=== PATIENT | male | born 1960 | race African-American/Black ===

== ENCOUNTER 2017-04-11 11:58 | Emergency (ER) | payer MEDICAID, OTHER ==
[~2017-04-11] VITALS: Ht 182.9 cm; Wt 104.3 kg
[2017-04-11] MEDS ORDERED: HYDROCODONE/ACETAMINOPHEN 5/325MG TABLET PO ONE (13:00)
[2017-04-11] MEDS ORDERED: BACITRACIN ZINC OINT UDPKT TOP ONE (13:00)
[2017-04-11 13:25] VITALS: BP 161/88
[2017-04-11] MEDS ORDERED: LIDOCAINE HCL 1% 20ML VIAL (Pyxis) INJ MC ONE (14:15)
== END 2017-04-11 16:39 | disposition home or self-care (01) ==
LOC: ER 12:07
DX: S91.112A Laceration without foreign body of left great toe without damage to nail, initial encounter (principal); W25.XXXA Contact with sharp glass, initial encounter; Y93.89 Activity, other specified; Y92.018 Other place in single-family (private) house as the place of occurrence of the external cause; M20.5X2 Other deformities of toe(s) (acquired), left foot; R20.0 Anesthesia of skin; M79.621 Pain in right upper arm; M79.5 Residual foreign body in soft tissue; Z87.828 Personal history of other (healed) physical injury and trauma
CPT/HCPCS: 64450; 73630; 99284; J3490

== ENCOUNTER 2017-08-24 17:43 | Emergency (ER) | payer MEDICAID ==
[~2017-08-24] VITALS: Ht 182.9 cm; Wt 81.0 kg
[2017-08-24] MEDS ORDERED: KETOROLAC 60MG/2ML VIAL IM ONE (23:15)
[2017-08-25] MEDS ORDERED: TRAMADOL 50MG TABLET PO ONE (01:15)
[2017-08-25 01:50] VITALS: BP 155/80
== END 2017-08-25 02:00 | disposition home or self-care (01) ==
LOC: ER 19:25
DX: S03.2XXA Dislocation of tooth, initial encounter (principal); S40.012A Contusion of left shoulder, initial encounter; Y04.0XXA Assault by unarmed brawl or fight, initial encounter; Y93.89 Activity, other specified; Y92.89 Other specified places as the place of occurrence of the external cause; Y99.8 Other external cause status
CPT/HCPCS: 73030; 96372; 99284; J1885